=== PATIENT | male | born 1960 | race Caucasian/White ===

== ENCOUNTER 2018-10-05 13:10 | Emergency (ER) | payer OTHER, SELFPAY ==
[2018-10-05 13:20] VITALS: BP 155/83; PULSE 69; RESP 12; TEMP 36.6; O2SAT 98; BMI 27.7
--- NOTE | 2018-10-05 14:10 | ED_ITS ---
HPI - Dizziness <Rafaela John PA-C - Last Filed: 10/05/18 21:29> General Chief Complaint: Dizziness Stated Complaint: DIZZY SPELL Time Seen by Provider: 10/05/18 13:33 Source: patient Mode of arrival: ambulatory Limitations: no limitations History of Present Illness HPI Narrative: this 58-year-old male comes in due to dizzy spell that occurred while he was at work today. 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 He states that he had to be helped off the floor and sat down. He states that others noticed he was pale. He states he felt worse for a couple of minutes, then this improved on its own. He states he did not have any vomiting. He did not have any headache, vision change, palpitations, chest pain or dyspnea prior. He has not had any of these symptoms since. He has not had any abdominal pain. He has not had any facial weakness, difficulty with speech or swallowing, weakness or paresthesia in the extremities. His states that he seems normal now. He notes that this happened after lunch, and he had about half or less of his usual insulin injection ( 5 units) when usually he takes 10 or 12, so he wonders whether related to high blood sugar. He states he was feeling normal this morning. He has not had any sinus symptoms or URI symptoms though does have history of multiple ear infections and tubes. He did have some GI upset last week but that was fully resolved. Related Data Home Medications Medication Instructions Recorded Confirmed Vitamin B-12 1 tab PO DAILY 10/05/18 10/05/18 atorvastatin 20 mg PO BEDTIME 10/05/18 10/05/18 cholecalciferol (vitamin D3) 5,000 unit PO DAILY 10/05/18 10/05/18 [Vitamin D3] gabapentin 300 mg PO TID 10/05/18 10/05/18 insulin aspart U-100 [Novolog 1 dose SUBCUT TID PRN 10/05/18 10/05/18 Flexpen U-100 Insulin] insulin detemir U-100 [Levemir 38 units SUBCUT QPM 10/05/18 10/05/18 FlexTouch U-100 Insuln] levothyroxine 125 mcg PO DAILY 10/05/18 10/05/18 lisinopril 20 mg PO DAILY 10/05/18 10/05/18 paroxetine HCl 20 mg PO DAILY 10/05/18 10/05/18 zolpidem 10 mg PO BEDTIME 10/05/18 10/05/18 Allergies Allergy/AdvReac Type Severity Reaction Status Date / Time No Known Drug Allergies Allergy Verified 10/05/18 13:20 Review of Systems <Rafaela John PA-C - Last Filed: 10/05/18 21:29> Review of Systems All systems reviewed & are unremarkable except as noted in HPI and below Exam <Rafaela John PA-C - Last Filed: 10/05/18 21:29> Narrative Exam Narrative: GENERAL APPEARANCE: Patient sitting comfortably, in no distress. HEENT: PERRL, EOMI, Both TMs are scarred, intact, no normal light reflexes, normal oropharynx, no sinus TTP NECK: Supple LUNGS: Clear to auscultation bilaterally. HEART: Rate and rhythm regular without murmur, normal S1 and S2, no S3 or S4. ABDOMEN: Soft, NT, ND, + BS x 4 quadrants NEUROLOGIC: Alert and oriented, normal speech, gait and coordination. facial musculature is symmetric. +Hallpike maneuver with head turned to left (mild sx elicited) MUSCULOSKELETAL: Full Csp AROM Initial Vital Signs Initial Vital Signs: Vital Signs Temperature 97.8 F 10/05/18 13:20 Pulse Rate 69 10/05/18 13:20 Respiratory Rate 12 10/05/18 13:20 Blood Pressure 155/83 H 10/05/18 13:20 Pulse Oximetry 98 10/05/18 13:20 <Erendira Rodriguez MD - Last Filed: 10/11/18 07:58> Initial Vital Signs Initial Vital Signs: Vital Signs Temperature 97.8 F 10/05/18 13:20 Pulse Rate 69 10/05/18 13:20 Respiratory Rate 12 10/05/18 13:20 Blood Pressure 155/83 H 10/05/18 13:20 Pulse Oximetry 98 10/05/18 13:20 Scores <Rafaela John PA-C - Last Filed: 10/05/18 21:29> HEART Score Heart Score Age: 45-64 years old NIH Stroke Scale Level of Conciousness: Alert, keenly responsive Ask month/age: Answers both questions correctly. Open/close eyes, close hand: Performs both tasks correctly Best gaze horizontal: Normal Visual marx: No visual loss Facial palsy: Normal symetrical movement Left arm drift: No drift for full 10 sec Right arm drift: No drift for full 10 sec Left leg drift: No drift for full 10 sec Right leg drift: No drift for full 10 sec Limb ataxia: Absent Sensory on face/arms/legs: Normal, no sensory loss Best language: No aphasia, normal Dysarthria: Normal Extinction or inattention: No abnormality Total NIH Stroke scale score: 0 Course <Rafaela John PA-C - Last Filed: 10/05/18 21:29> Additional Information: Patient is feeling improved and anxious to depart. after testing, he did reveal that he has been hospitalized for DKA in the past. Reviewed findings with Dr. Rodriguez. glucose is appropriately improved with fluids. He does have some urine and serum ketones, but no anion gap and is not acidotic. Advised increasing his insulin again, pushing fluids, meclizine as needed. Advised not working for now or driving until after his follow-up with PCP to determine whether vertigo resolved or further workup needed. He is agreeable with this as well as plan to return if any worsening symptoms given his history of DKA. Discussed he is at risk for this and needs to follow up closely with PCP and review insulin regimen. 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 Orders Ordered: Discontinued Medications Sodium Chloride (Normal Saline 0.9%) 1,000 mls @ 1,000 mls/hr IV BOLUS ONE Stop: 10/05/18 15:23 Last Infusion: 10/05/18 16:12 Dose: 0 mls/hr Admin: 10/05/18 14:25 Dose: 1,000 mls/hr Meclizine HCl (Antivert) 25 mg PO NOW ONE Stop: 10/05/18 15:02 Last Admin: 10/05/18 15:07 Dose: 25 mg Vital Signs - 8 hr 10/05/18 14:43 10/05/18 15:30 10/05/18 16:15 Pulse Rate 70 70 69 Respiratory Rate 15 20 18 Blood Pressure [Left Arm] 133/83 145/80 H 140/85 Pulse Oximetry 100 99 99 <Erendira Rodriguez MD - Last Filed: 10/11/18 07:58> Orders Ordered: Discontinued Medications Sodium Chloride (Normal Saline 0.9%) 1,000 mls @ 1,000 mls/hr IV BOLUS ONE Stop: 10/05/18 15:23 Last Infusion: 10/05/18 16:12 Dose: 0 mls/hr Admin: 10/05/18 14:25 Dose: 1,000 mls/hr Meclizine HCl (Antivert) 25 mg PO NOW ONE Stop: 10/05/18 15:02 Last Admin: 10/05/18 15:07 Dose: 25 mg Vital Signs - 8 hr 10/05/18 14:43 10/05/18 15:30 10/05/18 16:15 Pulse Rate 70 70 69 Respiratory Rate 15 20 18 Blood Pressure [Left Arm] 133/83 145/80 H 140/85 Pulse Oximetry 100 99 99 MDM - Dizziness <Rafaela John PA-C - Last Filed: 10/05/18 21:29> Lab Data Result diagrams: 10/05/18 13:25 10/05/18 13:25 Lab Results 10/05/18 10/05/18 10/05/18 Range/Units 13:25 13:25 13:25 WBC 5.4 (4.5-11.0) X10^3/uL RBC 4.19 L (4.5-5.9) X10^6/uL Hgb 13.2 L (13.5-17.5) g/dL Hct 38.5 L (41-53) % MCV 91.9 (80-100) fL MCH 31.4 (26-34) PG MCHC 34.2 (30-36) % RDW 12.9 (11.6-14.8) % Plt Count 188 (150-400) X10^3/uL Neut % (Auto) 58.1 (50-75) % Lymph % (Auto) 31.2 (25-40) % [place] % (Auto) 5.1 (3-14) % Eos % (Auto) 5.0 H (2-4) % Baso % (Auto) 0.6 (0-2) % Neut # (Auto) 3200 (8514-3665) /uL Sodium 138 (137-145) mmol/L Potassium 4.2 (3.4-5.1) mmol/L Chloride 99 (98-107) mmol/L Carbon Dioxide 26 (22-32) mmol/L BUN 18 (9-20) mg/dL Creatinine 0.70 (0.66-1.25) mg/dL Estimated GFR > 60.0 (>60) mL/min BUN/Creatinine Ratio 25.7 H (6-22) Glucose 401 H (70-100) mg/dL Calcium 9.0 (8.4-10.2) mg/dL Total Bilirubin 0.3 (0.2-1.3) mg/dL AST 25 (17-59) IU/L ALT 34 (21-72) IU/L Alkaline Phosphatase 113 (38-126) U/L Total Creatine Kinase 84 (55-170) U/L CK-MB (CK-2) TNP CK-MB (CK-2) Rel Index TNP Troponin I < 0.012 (0.01-0.034) ng/mL Total Protein 6.4 (6.3-8.2) g/dL Albumin 4.1 (3.5-5.0) g/dL Globulin 2.3 (1.7-4.1) g/dL Albumin/Globulin Ratio 1.8 (1.0-2.8) Ketones 0.49 H (<0.27) mmol/L Point of Care Testing Glucose POC 291 Urine Dip Bedside Urine Glucose 1000 mg/dl Bedside Urine Bilirubin - Negative Bedside Urine Ketone +/- 5 Urine Specific [place] 1.020 Bedside Urine Occult Blood - Negative Bedside Urine pH 6.0 Bedside Urine Protein - Negative Bedside Urine Urobilinogen - Negative Bedside Urine Nitrite - Negative Bedside Urine Leukocytes - Negative Esterase <Erendira Rodriugez MD - Last Filed: 10/11/18 07:58> Lab Data Lab Results 10/05/18 10/05/18 10/05/18 Range/Units 13:25 13:25 13:25 WBC 5.4 (4.5-11.0) X10^3/uL RBC 4.19 L (4.5-5.9) X10^6/uL Hgb 13.2 L (13.5-17.5) g/dL Hct 38.5 L (41-53) % MCV 91.9 (80-100) fL MCH 31.4 (26-34) PG MCHC 34.2 (30-36) % RDW 12.9 (11.6-14.8) % Plt Count 188 (150-400) X10^3/uL Neut % (Auto) 58.1 (50-75) % Lymph % (Auto) 31.2 (25-40) % [place] % (Auto) 5.1 (3-14) % Eos % (Auto) 5.0 H (2-4) % Baso % (Auto) 0.6 (0-2) % Neut # (Auto) 3200 (5999-8985) /uL Sodium 138 (137-145) mmol/L Potassium 4.2 (3.4-5.1) mmol/L Chloride 99 (98-107) mmol/L Carbon Dioxide 26 (22-32) mmol/L BUN 18 (9-20) mg/dL Creatinine 0.70 (0.66-1.25) mg/dL Estimated GFR > 60.0 (>60) mL/min BUN/Creatinine Ratio 25.7 H (6-22) Glucose 401 H (70-100) mg/dL Calcium 9.0 (8.4-10.2) mg/dL Total Bilirubin 0.3 (0.2-1.3) mg/dL AST 25 (17-59) IU/L ALT 34 (21-72) IU/L Alkaline Phosphatase 113 (38-126) U/L Total Creatine Kinase 84 (55-170) U/L CK-MB (CK-2) TNP CK-MB (CK-2) Rel Index TNP Troponin I < 0.012 (0.01-0.034) ng/mL Total Protein 6.4 (6.3-8.2) g/dL Albumin 4.1 (3.5-5.0) g/dL Globulin 2.3 (1.7-4.1) g/dL Albumin/Globulin Ratio 1.8 (1.0-2.8) Ketones 0.49 H (<0.27) mmol/L Point of Care Testing Glucose POC 291 Urine Dip Bedside Urine Glucose 1000 mg/dl Bedside Urine Bilirubin - Negative Bedside Urine Ketone +/- 5 Urine Specific [place] 1.020 Bedside Urine Occult Blood - Negative Bedside Urine pH 6.0 Bedside Urine Protein - Negative Bedside Urine Urobilinogen - Negative Bedside Urine Nitrite - Negative Bedside Urine Leukocytes - Negative Esterase Discharge Plan Departure Patient Disposition: Home Clinical Impression: Vertigo, Diabetes mellitus with hyperglycemia, with long-term current use of insulin Discharge Date/Time: 10/05/18 16:16 Interventions: ED Discharge Assessment Last Done: 10/05/18 16:16 Instructions: DI for Vertigo Activity Restrictions/Additional Instructions: your vertigo appears consistent with positional vertigo given that I was able to elicit symptoms a little bit when I examined you today. Please take over-the -counter meclizine, 25 mg every 4-6 hours as needed. Remember not to drive or work while taking that as it can make you sleepy. Your blood sugar may have contributed to this as well but I do not think it is the main cause. You do not appear to be in diabetic ketoacidosis again now however you did have some abnormalities on your lab work and are at risk for having this happen again, so please be sure to drink plenty of clear fluid, increase your insulin as you usually would at home, and monitor fasting and after meal blood sugars so that you can review at your clinic follow up. the please call your clinic today and let them know you were seen in the emergency room and we have advised you to follow up in the next day or 2. please remain off of work until then given your dizziness. Return to the ED as we talked about if you have any acutely worsening symptoms , or new symptoms such as chest pain, vision change, or weakness Prescriptions: No Action atorvastatin 20 mg tablet 20 mg PO BEDTIME RF: 0 lisinopril 20 mg tablet 20 mg PO DAILY RF: 0 paroxetine HCl 20 mg tablet 20 mg PO DAILY RF: 0 levothyroxine 125 mcg tablet 125 mcg PO DAILY RF: 0 gabapentin 300 mg capsule 300 mg PO TID RF: 0 zolpidem 10 mg tablet 10 mg PO BEDTIME RF: 0 insulin aspart U-100 [Novolog Flexpen U-100 Insulin] 100 unit/mL insulin pen 1 dose subcut TID PRN (Reason: sliding scale) RF: 0 insulin detemir U-100 [Levemir FlexTouch U-100 Insuln] 100 unit/mL (3 mL) insulin pen 38 units subcut QPM RF: 0 cholecalciferol (vitamin D3) [Vitamin D3] 5,000 unit Tablet 5,000 unit PO DAILY RF: 0 Vitamin B-12 1 tab PO DAILY RF: 0 Referrals: [facility], [place] [Other]
[2018-10-05] MEDS: SODIUM CHLORIDE 0.9% 1,000 ML 1000 ML IV (14:25)
[2018-10-05 14:37] LABS: Add Manual Diff / Slide Review NO; Basophils Percent Auto 0.6 % (0-2); Hematocrit 38.5 % (41-53); Hemoglobin 13.2 g/dL (13.5-17.5); Lymphocytes Percent Auto 31.2 % (25-40); Mean Corpuscular HGB Conc 34.2 % (30-36); Mean Corpuscular Hemoglobin 31.4 PG (26-34); Mean Corpuscular Volume 91.9 fL (80-100); Monocytes Percent Auto 5.1 % (3-14); Neutrophils Absolute Auto 3200 /uL (3000-5900); Neutrophils Percent Auto 58.1 % (50-75); Platelet Count 188 X10^3/uL (150-400); Red Blood Cell Count 4.19 X10^6/uL (4.5-5.9); Red Cell Distribution Width 12.9 % (11.6-14.8); White Blood Cell Count 5.4 X10^3/uL (4.5-11.0)
[2018-10-05 14:42] LABS: Alanine Aminotransferase 34 IU/L (21-72); Albumin 4.1 g/dL (3.5-5.0); Albumin Globulin Ratio 1.8 (1.0-2.8); Alkaline Phosphatase 113 U/L (38-126); Aspartate Aminotransferase 25 IU/L (17-59); BUN Creatinine Ratio 25.7 (6-22); Bilirubin Total 0.3 mg/dL (0.2-1.3); Blood Urea Nitrogen 18 mg/dL (9-20); Carbon Dioxide 26 mmol/L (22-32); Chloride 99 mmol/L (98-107); Creatine Kinase 84 U/L (55-170); Estimated Glomerular Filt Rate > 60.0 mL/min (>60); Globulin 2.3 g/dL (1.7-4.1); Glucose 401 mg/dL (70-100); HEMOLYSIS < 15 (0-50); Potassium 4.2 mmol/L (3.4-5.1); Sodium 138 mmol/L (137-145); Total Protein 6.4 g/dL (6.3-8.2)
[2018-10-05 14:43] VITALS: BP 133/83; PULSE 70; RESP 15; O2SAT 100
[2018-10-05 14:55] LABS: Troponin I < 0.012 ng/mL (0.01-0.034)
[2018-10-05] MEDS: MECLIZINE HCL 12.5 MG TABLET 25 MG PO (15:07)
[2018-10-05 15:30] VITALS: BP 145/80; PULSE 70; RESP 20; O2SAT 99
[2018-10-05 15:54] LABS: Ketones (Beta-Hydroxybutyrate) 0.49 mmol/L (<0.27)
[2018-10-05 16:15] VITALS: BP 140/85; PULSE 69; RESP 18; O2SAT 99
== END 2018-10-05 16:16 | disposition home or self-care (01) ==
PROVIDERS: Emergency Provider Internal Medicine; PCP Dermatology
DX: E11.65 Type 2 diabetes mellitus with hyperglycemia (principal); R42 Dizziness and giddiness; Z79.4 Long term (current) use of insulin
CPT/HCPCS: 80053; 81003; 82009; 82550; 82962; 84484; 85025; 93005; 93010; 96360; 96361; 99283; 99284

== ENCOUNTER 2023-06-19 11:29 | Emergency (ER) | payer MEDICARE, SELFPAY ==
[2023-06-19 11:37] VITALS: BP 152/80; PULSE 80; RESP 16; TEMP 37.1; O2SAT 97; BMI 23.7
--- NOTE | 2023-06-19 11:41 | ED.ABDPAIN ---
HPI - Abdominal Pain <Manjula Ervin [facility] - Last Filed: 06/19/23 13:44> General Chief Complaint: Abdominal Pain Stated Complaint: history of stomach infection, weight loss 30lbs Time Seen by Provider: 06/19/23 11:39 History of Present Illness HPI narrative: This is a 62-year-old gentleman who presents emergency department complaining upper abdominal pain. He has history of type 1 diabetes and states this has been stable. He has a complicated abdominal history with multiple visits to [facility] for urosepsis initially, he also had complications of a prostate abscess, spinal abscess and hip abscess. He has surgery at [facility] and was on IV antibiotics and TPN for approximately 2-3 months. Patient no longer with PICC line. Complains of worsening abdominal pain to the upper abdomen for the last 2 days with nausea and vomiting. Denies any stool and no bowel movement in last 2 days. Denies fever but endorses having chills. Complains of a 30 lb weight loss over the last 2 months. He has CGM with the current glucose of 102. He has been on oxycodone for pain, reports his PCP or his primary doctor over at [facility] is Dr. Diaz. On May 26, 2023 patient was diagnosed with abnormal weight loss, left lower quadrant pain, spondylosis, extradural and subdural abscess, BPH with lower urinary tract symptoms, other obstructive reflux uropathy and low back pain. He had methicillin-susceptible Staph aureus infection as the cause of his illness in March 2023 and he develop sepsis out the prostate and urinary tract infection. Related Data Home Medications Medication Instructions Recorded Confirmed Vitamin B-12 1 tab PO DAILY 10/05/18 10/05/18 atorvastatin 20 mg tablet 20 mg PO BEDTIME 10/05/18 10/05/18 cholecalciferol (vitamin D3) 125 5,000 unit PO DAILY 10/05/18 10/05/18 mcg (5,000 unit) tablet (Vitamin D3) gabapentin 300 mg capsule 300 mg PO TID 10/05/18 10/05/18 insulin aspart U-100 100 unit/mL 1 dose SUBCUT TID PRN sliding scale 10/05/18 10/05/18 (3 mL) subcutaneous pen insulin detemir U-100 100 unit/mL 38 units SUBCUT QPM 10/05/18 10/05/18 (3 mL) subcutaneous pen levothyroxine 125 mcg tablet 125 mcg PO DAILY 10/05/18 10/05/18 lisinopril 20 mg tablet 20 mg PO DAILY 10/05/18 10/05/18 paroxetine HCl 20 mg tablet 20 mg PO DAILY 10/05/18 10/05/18 zolpidem 10 mg tablet 10 mg PO BEDTIME 10/05/18 10/05/18 Previous Rx's Medication Instructions Recorded amoxicillin 875 mg-potassium 1 tab PO BID 10 days #20 tabs 06/19/23 clavulanate 125 mg tablet ondansetron 4 mg disintegrating 4 mg PO Q8H PRN nausea and 06/19/23 tablet vomiting #14 tabs oxycodone 5 mg tablet 5 mg PO TID PRN pain #14 tabs 06/19/23 Allergies Allergy/AdvReac Type Severity Reaction Status Date / Time No Known Drug Allergies Allergy Verified 10/05/18 13:20 Review of Systems <MARYANN Barajas - Last Filed: 06/19/23 13:44> Review of Systems ROS Unobtainable: All systems reviewed & are unremarkable except as noted in HPI and below Patient History <MARYANN Barajas - Last Filed: 06/19/23 13:44> Social History Smoking Status: Never smoker Smoking Status: Never smoker alcohol intake frequency: holidays/special occasions only Substance Use Type: does not use Exam <MARYANN Barajas - Last Filed: 06/19/23 13:44> Narrative Exam Narrative: Reviewed vitals signs and nursing notes. General: Pleasant, sitting upright, in no acute distress, well groomed, afebrile HEENT: symmetrical facial expressions, moist mucous membranes, neck is supple CV: regular rate and rhythm, warm extremities Respiratory: normal work of breathing, without tachypnea or hypoxia. GI: abdomen soft, nondistended, without CVA tenderness bilaterally. Surgical site to the right anterior hip with healed incision, no surrounding erythema, no edema, tenderness to the upper abdomen to palpation, negative Hopkins sign MSK: moves all extremities, generally weak with normal tone, ambulatory Skin: brisk capillary refill, without rash or wound Neuro: clear speech and normal cognition, A&O x3, GCS 15, no focal motor or sensation deficits, patient complains of pain 8/10, tearful and emotional. Initial Vital Signs Initial Vital Signs: Vital Signs Temperature 98.7 F 06/19/23 11:37 Pulse Rate 80 06/19/23 11:37 Respiratory Rate 16 06/19/23 11:37 Blood Pressure 152/80 H 06/19/23 11:37 Pulse Oximetry 97 06/19/23 11:37 Oxygen Delivery Method Room Air 06/19/23 11:37 <Jay Jay Palacios DO - Last Filed: 06/19/23 18:47> Initial Vital Signs Initial Vital Signs: Vital Signs Temperature 98.7 F 06/19/23 11:37 Pulse Rate 80 06/19/23 11:37 Respiratory Rate 16 06/19/23 11:37 Blood Pressure 152/80 H 06/19/23 11:37 Pulse Oximetry 97 06/19/23 11:37 Oxygen Delivery Method Room Air 06/19/23 11:37 Course <MARYANN Barajas - Last Filed: 06/19/23 13:44> Orders Ordered: ED Orders 06/19/23 11:59 CBC Auto Diff [Complete Blood Count AUTO DIFF] Stat CMP [Comprehensive Metabolic Panel] Stat Ketones (Beta-Hydroxybutyrate) Stat Lactate (Lactic Acid) Stat Lipase Stat Procalcitonin Stat 06/19/23 12:06 VBG [Venous Blood Gas] Stat 06/19/23 12:15 Blood Culture Stat 06/19/23 12:43 CT abdomen pelvis w con Stat 06/19/23 13:46 Urine Microscopic Stat Discontinued Medications Amoxicillin/Clavulanate Potassium (Amoxicillin/Clav 875/125 Mg) 1 tab PO NOW ONE Stop: 06/19/23 13:27 Last Admin: 06/19/23 13:40 Dose: 1 tab Documented By: TASHA Hydromorphone HCl (Hydromorphone 1 Mg Inj) 1 mg IV NOW ONE Stop: 06/19/23 12:02 Last Admin: 06/19/23 12:28 Dose: 1 mg Documented By: ST Hydromorphone HCl (Hydromorphone 0.5 Mg Inj) 0.75 mg IV Q1H PRN PRN Reason: pain Hydromorphone HCl (Hydromorphone 1 Mg Inj) 0.75 mg IV Q1H PRN PRN Reason: pain Last Admin: 06/19/23 13:40 Dose: 0.75 mg Documented By: TASHA Sodium Chloride (Normal Saline 0.9%) 1,000 mls @ 1,000 mls/hr IV BOLUS ONE Stop: 06/19/23 13:00 Last Admin: 06/19/23 12:24 Dose: 1,000 mls/hr Documented By: Ketorolac Tromethamine (Ketorolac 30 Mg/Ml Vial) 15 mg IV NOW ONE Stop: 06/19/23 12:02 Last Admin: 06/19/23 12:26 Dose: 15 mg Documented By: Ondansetron HCl (Ondansetron 4 Mg/2 Ml Inj) 4 mg IV NOW ONE Stop: 06/19/23 12:02 Last Admin: 06/19/23 12:28 Dose: 4 mg Documented By: Vital Signs Vital signs: Vital Signs - 8 hr 06/19/23 11:37 06/19/23 12:05 06/19/23 12:30 Temperature 98.7 F Pulse Rate 80 79 80 Respiratory Rate 16 16 16 Blood Pressure 152/80 H 162/77 H 170/80 H Pulse Oximetry 97 99 99 Oxygen Delivery Method Room Air Room Air Room Air 06/19/23 13:11 06/19/23 13:30 Temperature Pulse Rate 85 85 Respiratory Rate 12 17 Blood Pressure Pulse Oximetry 99 100 Oxygen Delivery Method <Jay Jay Palacios, - Last Filed: 06/19/23 18:47> Orders Ordered: ED Orders 06/19/23 11:59 CBC Auto Diff [Complete Blood Count AUTO DIFF] Stat CMP [Comprehensive Metabolic Panel] Stat Ketones (Beta-Hydroxybutyrate) Stat Lactate (Lactic Acid) Stat Lipase Stat Procalcitonin Stat 06/19/23 12:06 VBG [Venous Blood Gas] Stat 06/19/23 12:15 Blood Culture Stat 06/19/23 12:43 CT abdomen pelvis w con Stat 06/19/23 13:46 Urine Microscopic Stat Discontinued Medications Amoxicillin/Clavulanate Potassium (Amoxicillin/Clav 875/125 Mg) 1 tab PO NOW ONE Stop: 06/19/23 13:27 Last Admin: 06/19/23 13:40 Dose: 1 tab Documented By: TASHA Hydromorphone HCl (Hydromorphone 1 Mg Inj) 1 mg IV NOW ONE Stop: 06/19/23 12:02 Last Admin: 06/19/23 12:28 Dose: 1 mg Documented By: Hydromorphone HCl (Hydromorphone 0.5 Mg Inj) 0.75 mg IV Q1H PRN PRN Reason: pain Hydromorphone HCl (Hydromorphone 1 Mg Inj) 0.75 mg IV Q1H PRN PRN Reason: pain Last Admin: 06/19/23 13:40 Dose: 0.75 mg Documented By: TASHA Sodium Chloride (Normal Saline 0.9%) 1,000 mls @ 1,000 mls/hr IV BOLUS ONE Stop: 06/19/23 13:00 Last Admin: 06/19/23 12:24 Dose: 1,000 mls/hr Documented By: Ketorolac Tromethamine (Ketorolac 30 Mg/Ml Vial) 15 mg IV NOW ONE Stop: 06/19/23 12:02 Last Admin: 06/19/23 12:26 Dose: 15 mg Documented By: Ondansetron HCl (Ondansetron 4 Mg/2 Ml Inj) 4 mg IV NOW ONE Stop: 06/19/23 12:02 Last Admin: 06/19/23 12:28 Dose: 4 mg Documented By: ST Vital Signs Vital signs: Vital Signs - 8 hr 06/19/23 11:37 06/19/23 12:05 06/19/23 12:30 Temperature 98.7 F Pulse Rate 80 79 80 Respiratory Rate 16 16 16 Blood Pressure 152/80 H 162/77 H 170/80 H Pulse Oximetry 97 99 99 Oxygen Delivery Method Room Air Room Air Room Air 06/19/23 13:11 06/19/23 13:30 Temperature Pulse Rate 85 85 Respiratory Rate 12 17 Blood Pressure Pulse Oximetry 99 100 Oxygen Delivery Method MDM - Abdominal Pain <MARYANN Barajas - Last Filed: 06/19/23 13:44> Medical Records Medical records narrative: Dr. Diaz note from 05/26/2023 from [facility] shows that patient was admitted for severe abdominal pain with nausea, vomiting and decreased p.o. intake in the setting of subacute MSSA bacteremia associated with a prostate abscess and homogeneous spread to lumbar spine with epidural abscess and right hip septic arthritis. He is followed closely by Infectious Disease as an outpatient and there was no heber evidence of failure of therapy to his subacute MSSA bacteremia. His emergency department workup was unrevealing for the source of his abdominal pain, the differential also included gastritis come infectious gastroenteritis, potentially C difficile in the setting of long-term parenteral antibiotics, constipation or an occult infection. He was treated with cefazolin and Reglan for gastroparesis which he has a history of. He had an unrevealing GI PCR panel and metronidazole was added to his course. He had positive ketones at that time with a normal pH and was not found to be in DKA. Lab Data 06/19/23 11:59 06/19/23 11:59 Labs: Lab Results 06/19/23 06/19/23 06/19/23 Range/Units 11:59 11:59 11:59 WBC 8.5 (4.5-11.0) X10^3/uL RBC 3.10 L (4.5-5.9) X10^6/uL Hgb 8.8 L (13.5-17.5) g/dL Hct 26.1 L (41-53) % MCV 84.2 (80-100) fL MCH 28.4 (26-34) PG MCHC 33.8 (30-36) % RDW 17.5 H (11.6-14.8) % Plt Count 449 H (150-400) X10^3/uL Neut % (Auto) 79.3 H (50-75) % Lymph % (Auto) 14.6 L (25-40) % [place] % (Auto) 4.8 (3-14) % Eos % (Auto) 0.9 L (2-4) % Baso % (Auto) 0.4 (0-2) % Neut # (Auto) 6700 (5050-5210) /uL Lymph # (Auto) 1200 (0874-6791) /uL [place] # (Auto) 400 (0-900) /uL Eos # (Auto) 100 (0-450) /uL Baso # (Auto) 0 (0-100) /uL VBG pH (7.33-7.43) VBG pCO2 (45-50) mmHg VBG pO2 (35-45) mmHg VBG HCO3 (24-28) mmol/L VBG Total CO2 (24-29) mmol/L VBG O2 Saturation (70-75) % VBG Base Excess (0-4) mmol/L FiO2 Sodium 138 (137-145) mmol/L Potassium 4.2 (3.4-5.1) mmol/L Chloride 102 (98-107) mmol/L Carbon Dioxide 25 (22-32) mmol/L BUN 21 H (9-20) mg/dL Creatinine 0.78 (0.66-1.25) mg/dL Estimated GFR > 60 (>60) mL/min BUN/Creatinine Ratio 26.9 H (6-22) Glucose 113 H (80-110) mg/dL Lactate 0.8 (0.7-2.1) mmol/L Calcium 9.4 (8.4-10.2) mg/dL Total Bilirubin 0.3 (0.2-1.3) mg/dL AST 25 (17-59) IU/L ALT 16 (<50) IU/L Alkaline Phosphatase 146 H (38-126) U/L Total Protein 7.6 (6.3-8.2) g/dL Albumin 3.9 (3.5-5.0) g/dL Globulin 3.7 (1.7-4.1) g/dL Albumin/Globulin Ratio 1.1 (1.0-2.8) Lipase 47 (23-300) U/L Procalcitonin (<0.5) ng/mL Urine RBC (0-5/HPF) Urine WBC (0-5/HPF) Ur Squamous Epith Cells (0-5/HPF) Urine Bacteria (None) Ur Culture Indicated? Ketones 0.59 H (<0.27) mmol/L 06/19/23 06/19/23 06/19/23 Range/Units 11:59 12:06 13:46 WBC (4.5-11.0) X10^3/uL RBC (4.5-5.9) X10^6/uL Hgb (13.5-17.5) g/dL Hct (41-53) % MCV (80-100) fL MCH (26-34) PG MCHC (30-36) % RDW (11.6-14.8) % Plt Count (150-400) X10^3/uL Neut % (Auto) (50-75) % Lymph % (Auto) (25-40) % [place] % (Auto) (3-14) % Eos % (Auto) (2-4) % Baso % (Auto) (0-2) % Neut # (Auto) (9790-6549) /uL Lymph # (Auto) (4479-9342) /uL [place] # (Auto) (0-900) /uL Eos # (Auto) (0-450) /uL Baso # (Auto) (0-100) /uL VBG pH 7.48 H (7.33-7.43) VBG pCO2 37.9 L (45-50) mmHg VBG pO2 64 H (35-45) mmHg VBG HCO3 28 (24-28) mmol/L VBG Total CO2 29 (24-29) mmol/L VBG O2 Saturation 93 H (70-75) % VBG Base Excess 4.0 (0-4) mmol/L FiO2 21 Sodium (137-145) mmol/L Potassium (3.4-5.1) mmol/L Chloride (98-107) mmol/L Carbon Dioxide (22-32) mmol/L BUN (9-20) mg/dL Creatinine (0.66-1.25) mg/dL Estimated GFR (>60) mL/min BUN/Creatinine Ratio (6-22) Glucose (80-110) mg/dL Lactate (0.7-2.1) mmol/L Calcium (8.4-10.2) mg/dL Total Bilirubin (0.2-1.3) mg/dL AST (17-59) IU/L ALT (<50) IU/L Alkaline Phosphatase (38-126) U/L Total Protein (6.3-8.2) g/dL Albumin (3.5-5.0) g/dL Globulin (1.7-4.1) g/dL Albumin/Globulin Ratio (1.0-2.8) Lipase (23-300) U/L Procalcitonin 0.08 (<0.5) ng/mL Urine RBC 0-1/hpf (0-5/HPF) Urine WBC 0-1/hpf (0-5/HPF) Ur Squamous Epith Cells 0-1 /hpf (0-5/HPF) Urine Bacteria None seen (None) Ur Culture Indicated? Cult not indicated Ketones (<0.27) mmol/L Point of care testing: Urine Dip Bedside Urine Glucose Negative Bedside Urine Bilirubin - Negative Bedside Urine Ketone +/- 5 Urine Specific Adrian 1.020 Bedside Urine Occult Blood + Bedside Urine pH 6.0 Bedside Urine Protein ++ 100 Bedside Urine Urobilinogen - Negative Bedside Urine Nitrite - Negative Bedside Urine Leukocytes - Negative Esterase Imaging Data CT scan - abdomen/pelvis: Radiologist's Impression: [address] [address] [address] Scan Report Signed Patient: Marcos Florez MR#: [id number] : 1960 Acct:[id number] Age/Sex: 62 / M Date of Service: 06/19/23 Loc: ED Accession Number: [id number] ?? Procedure: CT abdomen pelvis w con Ordering Provider: Manjula Ervin PROCEDURE:? CT ABDOMEN PELVIS W CON ? INDICATIONS:? Eval for right hip/pelvic abscess, upper abd pain ? TECHNIQUE:? After the administration of oral and IV contrast, axial sections were acquired from the lung bases to the pubic symphysis.? Coronal and sagittal reformats were performed.? For radiation dose reduction, the following was used:? automated exposure control, adjustment of mA and/or kV according to patient size. ? COMPARISON:? [facility], CT, CT ANGIO ABDOMEN PELVIS, 06/01/2023, 21:05.? [facility], CR, XR PELVIS WITH LATERAL HIP RIGHT, 06/16/2023, 12:35.? [facility], CR, XR LUMBAR SPINE 2 OR 3 VIEWS, 06/16/2023, 12:35. ? FINDINGS:? Image quality:? Excellent.? ? Lung bases: Incidental note is made of bilateral gynecomastia.? Heart:? No significant findings. ? ? ABDOMEN: Liver:? Unremarkable.? ? Gallbladder:? Unremarkable.? ? Biliary ducts:? Unremarkable.? ? Pancreas:? Unremarkable.? ? Spleen:? Unremarkable.? ? Adrenal Glands:? Unremarkable.? ? Kidneys and Ureters:? Unremarkable.? ? ? Stomach and Bowel:? Moderate wall thickening can be seen involving the sigmoid colon.? Diverticula formation can be seen within this region.? Previously, there was seen free fluid within the pelvis.? No significant free fluid is now seen.? No free air is seen.? No abscess is seen. ? A normal appendix is noted.? New line no dilated loops of small bowel are seen. The stomach is decompressed, which limits its evaluation.? ? Ventral Wall: ? No hernia.? Abdominal Nodes:? No retroperitoneal or mesenteric adenopathy by size criteria.? Vessels:? Aorta and inferior vena cava are normal in size.? ? PELVIS: Pelvic Organs:? Unremarkable.? ? Bladder:? Unremarkable.? ? Pelvic Nodes: No enlarged lymph nodes.? Miscellaneous: No inguinal hernias are seen. ? ? ? Bones:? There is advanced right hip degenerative change.? On the prior examination, there was seen a right-sided joint effusion, with abnormal enhancement.? This is nearly resolved.? Moderate left hip degenerative change can be seen.? ? Moderate dextroconvex lumbar scoliosis is seen.? At L5-S1, there is grade 1 anterolisthesis, with associated bilateral L5 pars defects.? Focal degenerative change can be seen at L2-L3 and L5-S1. ? ? IMPRESSION:? Negative for abscess.? Advanced right hip degenerative change is seen, with moderate left hip degenerative change.? The previously seen abnormal fluid with enhancement involving the right hip is now no longer seen. ? If it would be helpful for clinical management decision making, please consider a dedicated hip MRI for further evaluation (assuming that there is no contraindication).? If there is strong clinical concern for a labral abnormality, this should be performed according to the arthrogram protocol.? ? Likely mild diverticulitis, with an improved appearance compared to the 06/01/2023 examination. ? The previously seen ascites within the pelvis has resolved. ? Normal appendix. ? ? ? Additional findings:? Dextroconvex scoliosis Focal L2-L3 and L5-S1 degenerative change Grade 1 L5-S1 anterolisthesis, with bilateral L5 pars defects ? Dictated by: Jose Ortiz M.D. on 06/19/2023 at 12:12 ? ? Approved by: Jose Ortiz M.D. on 06/19/2023 at 12:17 ? MDM Narrative Medical decision making narrative: Chief Complaint: abdominal pain Complicating factors: complicated abdominal history with multiple abscesses, chronic illness, adhesion from surgery Multiple etiologies for patient's complaint considered including, but not limited to: Sepsis, intra-abdominal abscess, urinary tract infection, bowel obstruction, diverticulitis, pancreatitis, gastric ulcer, volvulus I have independently reviewed the patient's vital signs and nursing notes as well as prior records if available. Plan: Lab work including lactic acid, venous blood gas, ketones, basic lab work and blood cultures, plan for CT imaging, pain control with Toradol and Dilaudid My interpretation lab values: Patient has anemia, hemoglobin 8.8 and hematocrit 26.1, thrombocytosis of 449, a left shift with a neutrophil count of 79.3 with no leukocytosis. VBG with a pH of 7.48, CO2 of 37.9, PO2 of 64, bicarb of 28 and CO2 29 base excess of 4.0. Chemistry shows a BUN of 21, GFR over 60, no elevated liver enzymes, normal lipase, normal procalcitonin without elevation, ketones of 0.59 with a pH of 7.4 aches so unlikely DKA Patient's family reports that his anemia is chronic, in March he received 2 blood transfusions. Urine dip is negative for pertinent abnormality. Patient's CT is negative for abscess or new fluid collection, the previously seen a normal fluid with enhancement to the right hip is no longer there, likely mild diverticulitis and CT reports improved in appearance compared to the 06/01/2023 exam, patient was not treated with antibiotics at that visit. He has tenderness over this site today, nausea vomiting and pain in 06/02. His pain was treated with Dilaudid which he reports good result from. He was given 1 L of normal saline, a 2nd dose of Dilaudid and prescribed Augmentin for diverticulitis. He was given a 10 day course with recommendation to follow-up with Dr. Diaz for recheck for further testing as needed or imaging if appropriate. Social considerations that may affect disposition: none Questions are addressed and there is agreement with the plan and for follow-up. <Jay Jay Palacios, DO - Last Filed: 06/19/23 18:47> Lab Data Labs: Lab Results 06/19/23 06/19/23 06/19/23 Range/Units 11:59 11:59 11:59 WBC 8.5 (4.5-11.0) X10^3/uL RBC 3.10 L (4.5-5.9) X10^6/uL Hgb 8.8 L (13.5-17.5) g/dL Hct 26.1 L (41-53) % MCV 84.2 (80-100) fL MCH 28.4 (26-34) PG MCHC 33.8 (30-36) % RDW 17.5 H (11.6-14.8) % Plt Count 449 H (150-400) X10^3/uL Neut % (Auto) 79.3 H (50-75) % Lymph % (Auto) 14.6 L (25-40) % [place] % (Auto) 4.8 (3-14) % Eos % (Auto) 0.9 L (2-4) % Baso % (Auto) 0.4 (0-2) % Neut # (Auto) 6700 (6932-7824) /uL Lymph # (Auto) 1200 (8545-8881) /uL [place] # (Auto) 400 (0-900) /uL Eos # (Auto) 100 (0-450) /uL Baso # (Auto) 0 (0-100) /uL VBG pH (7.33-7.43) VBG pCO2 (45-50) mmHg VBG pO2 (35-45) mmHg VBG HCO3 (24-28) mmol/L VBG Total CO2 (24-29) mmol/L VBG O2 Saturation (70-75) % VBG Base Excess (0-4) mmol/L FiO2 Sodium 138 (137-145) mmol/L Potassium 4.2 (3.4-5.1) mmol/L Chloride 102 (98-107) mmol/L Carbon Dioxide 25 (22-32) mmol/L BUN 21 H (9-20) mg/dL Creatinine 0.78 (0.66-1.25) mg/dL Estimated GFR > 60 (>60) mL/min BUN/Creatinine Ratio 26.9 H (6-22) Glucose 113 H (80-110) mg/dL Lactate 0.8 (0.7-2.1) mmol/L Calcium 9.4 (8.4-10.2) mg/dL Total Bilirubin 0.3 (0.2-1.3) mg/dL AST 25 (17-59) IU/L ALT 16 (<50) IU/L Alkaline Phosphatase 146 H (38-126) U/L Total Protein 7.6 (6.3-8.2) g/dL Albumin 3.9 (3.5-5.0) g/dL Globulin 3.7 (1.7-4.1) g/dL Albumin/Globulin Ratio 1.1 (1.0-2.8) Lipase 47 (23-300) U/L Procalcitonin (<0.5) ng/mL Urine RBC (0-5/HPF) Urine WBC (0-5/HPF) Ur Squamous Epith Cells (0-5/HPF) Urine Bacteria (None) Ur Culture Indicated? Ketones 0.59 H (<0.27) mmol/L 06/19/23 06/19/23 06/19/23 Range/Units 11:59 12:06 13:46 WBC (4.5-11.0) X10^3/uL RBC (4.5-5.9) X10^6/uL Hgb (13.5-17.5) g/dL Hct (41-53) % MCV (80-100) fL MCH (26-34) PG MCHC (30-36) % RDW (11.6-14.8) % Plt Count (150-400) X10^3/uL Neut % (Auto) (50-75) % Lymph % (Auto) (25-40) % [place] % (Auto) (3-14) % Eos % (Auto) (2-4) % Baso % (Auto) (0-2) % Neut # (Auto) (5967-6375) /uL Lymph # (Auto) (6170-3708) /uL [place] # (Auto) (0-900) /uL Eos # (Auto) (0-450) /uL Baso # (Auto) (0-100) /uL VBG pH 7.48 H (7.33-7.43) VBG pCO2 37.9 L (45-50) mmHg VBG pO2 64 H (35-45) mmHg VBG HCO3 28 (24-28) mmol/L VBG Total CO2 29 (24-29) mmol/L VBG O2 Saturation 93 H (70-75) % VBG Base Excess 4.0 (0-4) mmol/L FiO2 21 Sodium (137-145) mmol/L Potassium (3.4-5.1) mmol/L Chloride (98-107) mmol/L Carbon Dioxide (22-32) mmol/L BUN (9-20) mg/dL Creatinine (0.66-1.25) mg/dL Estimated GFR (>60) mL/min BUN/Creatinine Ratio (6-22) Glucose (80-110) mg/dL Lactate (0.7-2.1) mmol/L Calcium (8.4-10.2) mg/dL Total Bilirubin (0.2-1.3) mg/dL AST (17-59) IU/L ALT (<50) IU/L Alkaline Phosphatase (38-126) U/L Total Protein (6.3-8.2) g/dL Albumin (3.5-5.0) g/dL Globulin (1.7-4.1) g/dL Albumin/Globulin Ratio (1.0-2.8) Lipase (23-300) U/L Procalcitonin 0.08 (<0.5) ng/mL Urine RBC 0-1/hpf (0-5/HPF) Urine WBC 0-1/hpf (0-5/HPF) Ur Squamous Epith Cells 0-1 /hpf (0-5/HPF) Urine Bacteria None seen (None) Ur Culture Indicated? Cult not indicated Ketones (<0.27) mmol/L Point of care testing: Urine Dip Bedside Urine Glucose Negative Bedside Urine Bilirubin - Negative Bedside Urine Ketone +/- 5 Urine Specific [place] 1.020 Bedside Urine Occult Blood + Bedside Urine pH 6.0 Bedside Urine Protein ++ 100 Bedside Urine Urobilinogen - Negative Bedside Urine Nitrite - Negative Bedside Urine Leukocytes - Negative Esterase Discharge Plan Departure Patient Disposition: Home Clinical Impression: Diverticulitis Abdominal pain Qualifiers: Abdominal location: upper abdomen, unspecified Qualified Code(s): R10.10 - Upper abdominal pain, unspecified Instructions: DI for Diverticulitis Activity Restrictions/Additional Instructions: *You have been diagnosed with mild diverticulitis with improved appearances of previously seen fluid collections with no concerning areas of abscess today. Normal appearing appendix, degenerative changes in your hips but no concerning areas of bone infection or other bowel or urological abnormality. We will treat this with Augmentin times 10 days, stay hydrated and use Reglan as needed for gastroparesis. Please follow-up with Dr. Diaz, I have forwarded your chart to him for review. Please use the Percocet as needed, okay to use occasional naproxen as well. I am sorry for your pain, use MiraLax so that your stool remains soft and easier to pass it does not become obstructed. Please use Zofran as needed to prevent vomiting your pain medication. Eat a little bit of soft food with your medications so they do not hurt your stomach. It is okay to use Maalox with your medication if your stomach hurts after you take it. Use either Zofran or Reglan for nausea and vomiting, you do not need both at the same time unless you are vomiting. *What to do: *Please continue to take your regular medications as directed. [x ] New medication prescriptions sent to your pharmacy: [[facility] ] [ ] New medication written as a paper prescription [ ] No new medications given *Please call and schedule follow up with your primary care provider in 2-3 days, at least for an update. Let them know you were seen in the Emergency Department for the above problem. We will electronically transmit a record of today's note if your PCP or specialist is in our system. *If you do not have a primary care provider please contact [phone] to establish care with one of the [facility] primary care providers. *Return to the Emergency Department for worsening symptoms, inability to keep liquids down, fever greater than 101F, chills, or other concerning symptom. Prescriptions: New oxycodone 5 mg tablet 5 mg PO TID PRN (Reason: pain) Qty: 14 0RF ondansetron 4 mg tablet,disintegrating 4 mg PO Q8H PRN (Reason: nausea and vomiting) Qty: 14 0RF amoxicillin-pot clavulanate 875-125 mg tablet 1 tab PO BID 10 Days Qty: 20 0RF No Action atorvastatin 20 mg tablet 20 mg PO BEDTIME lisinopril 20 mg tablet 20 mg PO DAILY paroxetine HCl 20 mg tablet 20 mg PO DAILY Patient Comments: patient states needs refill levothyroxine 125 mcg tablet 125 mcg PO DAILY gabapentin 300 mg capsule 300 mg PO TID zolpidem 10 mg tablet 10 mg PO BEDTIME Patient Comments: patient states needs refill insulin aspart U-100 [Novolog Flexpen U-100 Insulin] 100 unit/mL insulin pen 1 dose subcut TID PRN (Reason: sliding scale) insulin detemir U-100 [Levemir FlexTouch U-100 Insuln] 100 unit/mL (3 mL) insulin pen 38 units subcut QPM cholecalciferol (vitamin D3) [Vitamin D3] 5,000 unit Tablet 5,000 unit PO DAILY Vitamin B-12 1 tab PO DAILY Referrals: [facility] [Provider Group] Chivo Ballard MD [Primary Care Provider] - Stand Alone Forms: Patient Portal/API <Jay Jay Palacios DO - Last Filed: 06/19/23 18:47> Cosign ED Attending Denise Attestation: I was immediately available in the department for consultation. Documentation has been reviewed. I agree with assessment and plan.
[2023-06-19 12:05] VITALS: BP 162/77; PULSE 79; RESP 16; O2SAT 99
[2023-06-19 12:12] LABS: Fractionated Inspired Oxygen 21; HCO3 VBG 28 mmol/L (24-28); Oxygen Saturation VBG 93 % (70-75); PCO2 VBG 37.9 mmHg (45-50); PO2 VBG 64 mmHg (35-45); Total CO2 VBG 29 mmol/L (24-29); pH VBG 7.48 (7.33-7.43)
[2023-06-19 12:22] LABS: Add Manual Diff / Slide Review NO; Basophils Absolute Auto 0 /uL (0-100); Basophils Percent Auto 0.4 % (0-2); Eosinophils Absolute Auto 100 /uL (0-450); Eosinophils Percent Auto 0.9 % (2-4); Hematocrit 26.1 % (41-53); Hemoglobin 8.8 g/dL (13.5-17.5); Lymphocytes Absolute Auto 1200 /uL (1100-4500); Lymphocytes Percent Auto 14.6 % (25-40); Mean Corpuscular HGB Conc 33.8 % (30-36); Mean Corpuscular Hemoglobin 28.4 PG (26-34); Mean Corpuscular Volume 84.2 fL (80-100); Monocytes Absolute Auto 400 /uL (0-900); Monocytes Percent Auto 4.8 % (3-14); Neutrophils Absolute Auto 6700 /uL (1500-7000); Neutrophils Percent Auto 79.3 % (50-75); Platelet Count 449 X10^3/uL (150-400); Red Cell Distribution Width 17.5 % (11.6-14.8); White Blood Cell Count 8.5 X10^3/uL (4.5-11.0)
[2023-06-19] MEDS: SODIUM CHLORIDE 0.9% 1,000 ML 1000 ML IV (12:24)
[2023-06-19] MEDS: KETOROLAC 30 MG/ML VIAL 15 MG IV (12:26)
[2023-06-19] MEDS: HYDROMORPHONE 1 MG INJ IV (12:28)
[2023-06-19] MEDS: ONDANSETRON 4 MG/2 ML INJ IV (12:28)
[2023-06-19 12:30] VITALS: BP 170/80; PULSE 80; RESP 16; O2SAT 99
[2023-06-19 12:34] LABS: Alanine Aminotransferase 16 IU/L (<50); Albumin 3.9 g/dL (3.5-5.0); Albumin Globulin Ratio 1.1 (1.0-2.8); Alkaline Phosphatase 146 U/L (38-126); Aspartate Aminotransferase 25 IU/L (17-59); BUN Creatinine Ratio 26.9 (6-22); Bilirubin Total 0.3 mg/dL (0.2-1.3); Blood Urea Nitrogen 21 mg/dL (9-20); Calcium 9.4 mg/dL (8.4-10.2); Carbon Dioxide 25 mmol/L (22-32); Chloride 102 mmol/L (98-107); Estimated Glomerular Filt Rate > 60 mL/min (>60); Globulin 3.7 g/dL (1.7-4.1); Glucose 113 mg/dL (80-110); HEMOLYSIS < 15 (0-50); Lactate (Lactic Acid) 0.8 mmol/L (0.7-2.1); Lipase 47 U/L (23-300); Potassium 4.2 mmol/L (3.4-5.1); Sodium 138 mmol/L (137-145); Total Protein 7.6 g/dL (6.3-8.2)
[2023-06-19 12:37] LABS: Ketones (Beta-Hydroxybutyrate) 0.59 mmol/L (<0.27)
--- NOTE | 2023-06-19 12:43 | DI.CT.S_ITS ---
PROCEDURE: CT ABDOMEN PELVIS W CON INDICATIONS: Eval for right hip/pelvic abscess, upper abd pain TECHNIQUE: After the administration of oral and IV contrast, axial sections were acquired from the lung bases to the pubic symphysis. Coronal and sagittal reformats were performed. For radiation dose reduction, the following was used: automated exposure control, adjustment of mA and/or kV according to patient size. COMPARISON: [facility], CT, CT ANGIO ABDOMEN PELVIS, 06/01/2023, 21:05. [facility], CR, XR PELVIS WITH LATERAL HIP RIGHT, 06/16/2023, 12:35. [facility], CR, XR LUMBAR SPINE 2 OR 3 VIEWS, 06/16/2023, 12:35. FINDINGS: Image quality: Excellent. Lung bases: Incidental note is made of bilateral gynecomastia. Heart: No significant findings. ABDOMEN: Liver: Unremarkable. Gallbladder: Unremarkable. Biliary ducts: Unremarkable. Pancreas: Unremarkable. Spleen: Unremarkable. Adrenal Glands: Unremarkable. Kidneys and Ureters: Unremarkable. Stomach and Bowel: Moderate wall thickening can be seen involving the sigmoid colon. Diverticula formation can be seen within this region. Previously, there was seen free fluid within the pelvis. No significant free fluid is now seen. No free air is seen. No abscess is seen. A normal appendix is noted. New line no dilated loops of small bowel are seen. The stomach is decompressed, which limits its evaluation. Ventral Wall: No hernia. Abdominal Nodes: No retroperitoneal or mesenteric adenopathy by size criteria. Vessels: Aorta and inferior vena cava are normal in size. PELVIS: Pelvic Organs: Unremarkable. Bladder: Unremarkable. Pelvic Nodes: No enlarged lymph nodes. Miscellaneous: No inguinal hernias are seen. Bones: There is advanced right hip degenerative change. On the prior examination, there was seen a right-sided joint effusion, with abnormal enhancement. This is nearly resolved. Moderate left hip degenerative change can be seen. Moderate dextroconvex lumbar scoliosis is seen. At L5-S1, there is grade 1 anterolisthesis, with associated bilateral L5 pars defects. Focal degenerative change can be seen at L2-L3 and L5-S1. IMPRESSION: Negative for abscess. Advanced right hip degenerative change is seen, with moderate left hip degenerative change. The previously seen abnormal fluid with enhancement involving the right hip is now no longer seen. If it would be helpful for clinical management decision making, please consider a dedicated hip MRI for further evaluation (assuming that there is no contraindication). If there is strong clinical concern for a labral abnormality, this should be performed according to the arthrogram protocol. Likely mild diverticulitis, with an improved appearance compared to the 06/01/2023 examination. The previously seen ascites within the pelvis has resolved. Normal appendix. Additional findings: Dextroconvex scoliosis Focal L2-L3 and L5-S1 degenerative change Grade 1 L5-S1 anterolisthesis, with bilateral L5 pars defects Dictated by: Jose Ortiz M.D. on 06/19/2023 at 12:12 Approved by: Jose Ortiz M.D. on 06/19/2023 at 12:17
[2023-06-19 12:50] LABS: Procalcitonin 0.08 ng/mL (<0.5)
[2023-06-19 13:11] VITALS: PULSE 85; RESP 12; O2SAT 99
[2023-06-19 13:30] VITALS: PULSE 85; RESP 17; O2SAT 100
[2023-06-19] MEDS: HYDROMORPHONE 1 MG INJ 0.75 MG IV (13:40)
[2023-06-19] MEDS: AMOXICILLIN/CLAV 875/125 MG 1 TAB PO (13:40)
[2023-06-19 14:11] LABS: Bacteria Urine None Seen; Culture Indicated Urine Cult Not Indicated; RBC Urine 0-1/HPF (0-5/HPF); Squamous Epithelial Cell Urine 0-1 /HPF (0-5/HPF); WBC Urine 0-1/HPF (0-5/HPF)
== END 2023-06-19 13:56 | disposition home or self-care (01) ==
PROVIDERS: Emergency Medicine; Emergency Provider Nurse Practitioner Critical Care Medicine; PCP Dermatology
DX: K57.92 Diverticulitis of intestine, part unspecified, without perforation or abscess without bleeding (principal); R10.10 Upper abdominal pain, unspecified; Z79.899 Other long term (current) drug therapy
CPT/HCPCS: 36415; 74177; 80053; 81003; 81015; 82009; 82805; 83605; 83690; 84145; 85025; 87040; 96374; 96375; 96376; 99284; J1170; J1885; J2405

== ENCOUNTER 2023-06-20 13:06 | Emergency (ER) | payer MEDICARE, SELFPAY ==
[2023-06-20 13:16] VITALS: BP 157/80; PULSE 94; RESP 18; TEMP 36.8; O2SAT 96; BMI 23.5
--- NOTE | 2023-06-20 14:03 | ED.GENADULT ---
HPI - General Adult General Chief complaint: Abdominal Pain Stated complaint: here T-1/diverticulitis not getting better Time Seen by Provider: 06/20/23 13:35 Source: patient Mode of arrival: Ambulatory History of Present Illness HPI narrative: Patient is a 62-year-old male. Has had several chronic medical issues over the past month requiring multiple day hospital stays. His last hospital stay was approximately 1 month ago. He started to have abdominal pain. CT scan was ordered. The pain actually improved somewhat but then came back again. He was seen here in the emergency department yesterday. Had a CT scan. This showed diverticulitis but actual improvement from a CT scan earlier this month. Was started on Augmentin. He is here for continued abdominal pain. He was also very nauseous this morning. Has multiple different nausea medications at home none of which seems to be helping. He does not have a referral to see GI. Related Data Home Medications Medication Instructions Recorded Confirmed Vitamin B-12 1 tab PO DAILY 10/05/18 10/05/18 atorvastatin 20 mg tablet 20 mg PO BEDTIME 10/05/18 10/05/18 cholecalciferol (vitamin D3) 125 5,000 unit PO DAILY 10/05/18 10/05/18 mcg (5,000 unit) tablet (Vitamin D3) gabapentin 300 mg capsule 300 mg PO TID 10/05/18 10/05/18 insulin aspart U-100 100 unit/mL 1 dose SUBCUT TID PRN sliding scale 10/05/18 10/05/18 (3 mL) subcutaneous pen insulin detemir U-100 100 unit/mL 38 units SUBCUT QPM 10/05/18 10/05/18 (3 mL) subcutaneous pen levothyroxine 125 mcg tablet 125 mcg PO DAILY 10/05/18 10/05/18 lisinopril 20 mg tablet 20 mg PO DAILY 10/05/18 10/05/18 paroxetine HCl 20 mg tablet 20 mg PO DAILY 10/05/18 10/05/18 zolpidem 10 mg tablet 10 mg PO BEDTIME 10/05/18 10/05/18 Previous Rx's Medication Instructions Recorded amoxicillin 875 mg-potassium 1 tab PO BID 10 days #20 tabs 06/19/23 clavulanate 125 mg tablet ondansetron 4 mg disintegrating 4 mg PO Q8H PRN nausea and 06/19/23 tablet vomiting #14 tabs oxycodone 5 mg tablet 5 mg PO TID PRN pain #14 tabs 06/19/23 lorazepam 0.5 mg tablet (Ativan) 0.5 mg PO BID PRN nausea and 06/20/23 vomiting #12 tabs promethazine 25 mg rectal 25 mg CO Q4-6H PRN nausea and 06/20/23 suppository vomiting #12 ea Allergies Allergy/AdvReac Type Severity Reaction Status Date / Time No Known Drug Allergies Allergy Verified 06/20/23 13:16 Review of Systems Review of Systems ROS Unobtainable: All systems reviewed & are unremarkable except as noted in HPI and below Patient History Social History Smoking Status: Never smoker Smoking Status: Never smoker alcohol intake frequency: holidays/special occasions only Substance Use Type: does not use Exam Initial Vital Signs Initial Vital Signs: Vital Signs Temperature 98.3 F 06/20/23 13:16 Pulse Rate 94 H 06/20/23 13:16 Respiratory Rate 18 06/20/23 13:16 Blood Pressure 157/80 H 06/20/23 13:16 Pulse Oximetry 96 06/20/23 13:16 Oxygen Delivery Method Room Air 06/20/23 13:16 Const General: cooperative and No ill appearing HENRI Head: normal to inspection Resp Effort & Inspection: normal respiratory effort Cardio Rate: regular rate GI Inspection: non-distended Neuro General: patient alert, patient awake and moves all extremities Extrem General: capillary refill normal Course Orders Ordered: ED Orders 06/20/23 13:20 Consult to MEDICAL STAFF COORDINATOR - [employer] Stat Discontinued Medications Hydromorphone HCl (Hydromorphone 1 Mg Inj) 1 mg IM NOW ONE Stop: 06/20/23 14:05 Vital Signs Vital signs: Vital Signs - 8 hr 06/20/23 13:16 Temperature 98.3 F Pulse Rate 94 H Respiratory Rate 18 Blood Pressure 157/80 H Pulse Oximetry 96 Oxygen Delivery Method Room Air Medical Decision Making Medical Records Medical records reviewed: Yes I reviewed the patient's medical records. MDM Narrative Medical decision making narrative: Patient has had an extensive workup over the past several weeks/months. Had CT scans and labs performed yesterday. Has been on only 1 day of antibiotics. Advised him that I am not surprised that his symptoms have improved after just 1 day of antibiotics. Based on his presentation today I do not feel that we need to repeat any imaging studies. He is here mostly for nausea and pain control. He states that Dilaudid has worked for him. He is also very tearful about his medical condition. Plan to be is to give him a prescription for some Ativan and also for some rectal Phenergan. He would benefit from referral to see Gastroenterology. Discharge Plan Departure Patient Disposition: Home Clinical Impression: Abdominal pain Instructions: DI for Abdominal Pain-Adult Activity Restrictions/Additional Instructions: Recommend that you continue to take all of your medications as directed. I also recommend that you follow-up with a GI doctor. You can call GI doctor the number provided below. Use the nausea medication as needed. Return to the emergency department for new symptoms. Prescriptions: New promethazine 25 mg suppository 25 mg CO Q4-6H PRN (Reason: nausea and vomiting) Qty: 12 0RF lorazepam [Ativan] 0.5 mg tablet 0.5 mg PO BID PRN (Reason: nausea and vomiting) Qty: 12 0RF No Action atorvastatin 20 mg tablet 20 mg PO BEDTIME lisinopril 20 mg tablet 20 mg PO DAILY paroxetine HCl 20 mg tablet 20 mg PO DAILY Patient Comments: patient states needs refill levothyroxine 125 mcg tablet 125 mcg PO DAILY gabapentin 300 mg capsule 300 mg PO TID zolpidem 10 mg tablet 10 mg PO BEDTIME Patient Comments: patient states needs refill insulin aspart U-100 [Novolog Flexpen U-100 Insulin] 100 unit/mL insulin pen 1 dose subcut TID PRN (Reason: sliding scale) insulin detemir U-100 [Levemir FlexTouch U-100 Insuln] 100 unit/mL (3 mL) insulin pen 38 units subcut QPM cholecalciferol (vitamin D3) [Vitamin D3] 5,000 unit Tablet 5,000 unit PO DAILY Vitamin B-12 1 tab PO DAILY oxycodone 5 mg tablet 5 mg PO TID PRN (Reason: pain) Qty: 14 0RF ondansetron 4 mg tablet,disintegrating 4 mg PO Q8H PRN (Reason: nausea and vomiting) Qty: 14 0RF amoxicillin-pot clavulanate 875-125 mg tablet 1 tab PO BID 10 Days Qty: 20 0RF Referrals: Chivo Ballard MD [Primary Care Provider] - Kody Rios MD [Physician] - Stand Alone Forms: Patient Portal/API
[2023-06-20] MEDS: HYDROMORPHONE 1 MG INJ IM (14:08)
[2023-06-20 14:15] VITALS: BP 156/73; PULSE 92; RESP 18; O2SAT 97
--- NOTE | 2023-06-20 14:25 | CM.SWNOTE ---
ED CASH SPECIALIST Note Patient is 62 y/o male who presents to ED due to concern for nausea, hx of DVT, and weight loss in recent months. Patient has hx of inpatient hospitalizations at [facility] in March 2023 and May 2023, patient was seen at this ED yesterday and at [facility] on 06/18/23. CASH SPECIALIST receives consult from supervisor photostat due to patient's spouse concern for FMLA. Patient has hx of Type 1 Diabetes, abnormal weight loss, left lower quadrant pain, spondylosis, extradural and subdural abscess, BPH with lower urinary tract symptoms, other obstructive reflux uropathy and low back pain. He had methicillin-susceptible Staph aureus infection, UTI and Sepsis. CASH SPECIALIST enters room to meet with patient. Present in room is patient and spouse, patient presents as A/Ox4. Patient refers to spouse to discuss needs further. It is reported that patient uses a cane or FWW at baseline, can manage most ADLs but endorses concerns for medication management and dependence of spouse for medication management. It is reported that patient has [facility] referral in place, spouse states it is just for PT. CASH SPECIALIST discusses adding other services, patient and spouse not ready at this time. It is reported that patient has PCP appt this week, CASH SPECIALIST discusses that new referral for HH can be submitted by PCP. CASH SPECIALIST provides spouse with financial assistance form from registration per spouse request. CASH SPECIALIST encourages spouse to inquire if they qualify for Medicaid as they report that funds are tight and patient's spouse has been not working, FMLA ending. CASH SPECIALIST provides senior resource guide and encourages spouse to call [facility] if patient qualifies for Medicaid. CASH SPECIALIST calls [facility] and faxes clinicals regarding this ED visit and yesterday's ED visit. Plan: patient to d/c to home upon medical clearance, patient to f/u with PCP and [facility]. FABIOLA Callaway
== END 2023-06-20 14:27 | disposition home or self-care (01) ==
PROVIDERS: Emergency Provider Emergency Medicine; PCP Dermatology
DX: R10.9 Unspecified abdominal pain (principal)
CPT/HCPCS: 96372; 99283; J1170